=== PATIENT | male | born 1955 | race Caucasian/White ===

== ENCOUNTER 2017-11-25 08:36 | Inpatient (IN) | payer OTHER ==
[~2017-11-25] VITALS: Ht 180.3 cm; Wt 132.0 kg
[2017-11-25 09:29] LABS: BASOPHIL % 0.8 % (0-2); PLATELET COUNT 145 x10^3mcL (130-400)
[2017-11-25 09:37] LABS: CARBON DIOXIDE 25.8 mmol/L (21-32); CHLORIDE SERUM 104 mmol/L (98-107); CREATININE SERUM 1.1 mg/dL (0.7-1.3); GFR1 > 60 mL/min; GLUCOSE SERUM 118 mg/dL (74-106); POTASSIUM SERUM 4.5 mmol/L (3.5-5.1); SODIUM SERUM 134 mmol/L (136-145)
[2017-11-25 09:42] LABS: ALKALINE PHOSPHATASE 192 U/L (46-116); ALT/SGPT 121 U/L (16-63); AST/SGOT 126 U/L (15-37); BILIRUBIN TOTAL 1.41 mg/dL (0.20-1.00); TOTAL PROTEIN, SERUM 8.1 g/dL (6.4-8.2)
[2017-11-25 09:43] LABS: ALBUMIN 3.2 g/dL (3.4-5.0)
[2017-11-25 09:55] LABS: RED CELL DISTRIBUTION WIDTH 14.6 % (11.5-14.5)
[2017-11-25 12:56] LABS: microscopic required? YES; urine erythrocyte TRACE (NEGATIVE)
[2017-11-25] MEDS ORDERED: CLARITIN LIQUI-10 MG PO (13:22)
[2017-11-25] MEDS ORDERED: LACTULOSE10 GM/152 PO (13:23)
[2017-11-25] MEDS ORDERED: TUMS CH (13:23)
[2017-11-25 14:27] VITALS: BP 147/80
[2017-11-25 14:34] VITALS: Ht 180.3 cm; Wt 132.0 kg
[2017-11-25 17:00] VITALS: BP 144/82
[2017-11-25 20:23] VITALS: BP 145/77
[2017-11-26 06:07] VITALS: BP 125/73
[2017-11-26 09:13] VITALS: BP 114/68
[2017-11-26 13:37] VITALS: BP 106/54
[2017-11-26 17:34] VITALS: BP 120/69
[2017-11-26 19:40] VITALS: BP 112/62
[2017-11-27 05:15] VITALS: BP 129/76
[2017-11-27 06:17] LABS: CALCIUM 8.7 mg/dL (8.5-10.1); CARBON DIOXIDE 29.8 mmol/L (21-32); CHLORIDE SERUM 104 mmol/L (98-107); CREATININE SERUM 1.1 mg/dL (0.7-1.3); GFR1 > 60 mL/min; GLUCOSE SERUM 95 mg/dL (74-106); POTASSIUM SERUM 4.1 mmol/L (3.5-5.1); SODIUM SERUM 139 mmol/L (136-145)
[2017-11-27 06:20] LABS: BASOPHIL % 0.5 % (0-2); PLATELET COUNT 137 x10^3mcL (130-400)
[2017-11-27 06:32] LABS: RED CELL DISTRIBUTION WIDTH 14.7 % (11.5-14.5)
[2017-11-27 08:31] VITALS: BP 124/69
[2017-11-27 12:02] VITALS: BP 124/69
== END 2017-11-27 13:47 | disposition other institution (70) | DRG 441 ==
LOC: ED 08:36 → DU 12:25
PROVIDERS: Emergency Medicine; Internal Medicine
PROC: 0W9G3ZZ Drainage of Peritoneal Cavity, Percutaneous Approach (ICD-10-PCS; principal; 2017-11-26)
DX: K72.90 Hepatic failure, unspecified without coma (principal); I81 Portal vein thrombosis; R18.8 Other ascites; K76.6 Portal hypertension; F11.20 Opioid dependence, uncomplicated; K74.60 Unspecified cirrhosis of liver; K21.9 Gastro-esophageal reflux disease without esophagitis; Z88.8 Allergy status to other drugs, medicaments and biological substances; Z76.5 Malingerer [conscious simulation]
CPT/HCPCS: 49083; 85378; C9113; J0696; J1940; J2270; J2405; J3490; J7030; Q0092; Q9967

== ENCOUNTER 2018-07-25 12:37 | Inpatient (IN) | payer OTHER ==
[~2018-07-25] VITALS: Ht 180.3 cm; Wt 95.3 kg
[~2018-07-25 12:37] MED LIST: CLARITIN LIQUI-10 MG PO; LACTULOSE10 GM/152 PO; TUMS CH
[2018-07-25 12:48] VITALS: Ht 180.3 cm; Wt 95.3 kg
--- NOTE | 2018-07-25 12:50 | NUR ---
PT PRESENTS TO ED BIBA FOR NEAR SYNCOPAL EPISODE. PT CIM INMATE AND WAS TO BE TRANSPORTED TO DIALYSIS () WHEN HE WAS FOUND NEAR NONRESPONSIVE, ONLY RESPONDING TO TACTILE STIMULI. PT STATES 10/10 PAIN TO BILATERAL FLANKS. PRIOR TO AMBULANCE ARRIVAL PT WAS FOUND TO HAVE BP 70/30 AND A LEFT EJ WAS INITIATED. 500 ML FLUID BOLUS GIVEN. PARAMEDICS EN ROUTE GAVE AN ADDITIONAL 50 ML, BS 103.
--- NOTE | 2018-07-25 13:14 | NUR ---
DR DAVID AT BEDSIDE SPEAKING WITH PT, PT ANSWERING ALL QUESTIONS. PT ON CHANGE NUMBER OPERATOR, B/P 94/61 P=98 SIDE RAILS UP FOR RON, C/I IN REACH PT IS FROM [facility] HE HAS 2 GUARDS AT HIS SIDE ADELAIDA AND ZACHARY.
--- NOTE | 2018-07-25 13:32 | NUR ---
FENCE INSTALLER FOREMAN AT BEDSIDE ATTEMPTING TO COLLECT BLOOD. PT AWAKE AND TOLERATING WELL.
--- NOTE | 2018-07-25 13:33 | NUR ---
JUVENILE JUSTICE OFFICER AT BEDSIDE FOR LAB DRAW
--- NOTE | 2018-07-25 13:39 | NUR ---
I ASSISTED WITH BLOOD COLLECTION, I ASKED THE PT IF I COULD WITHDRAW BLOOD FROM HIS EJ ON LEFT NECK PT AGEED. I USED TOW PICKER. PT TOLERATED WELL.
--- NOTE | 2018-07-25 13:40 | NUR ---
BROOM BUILDER AT BEDSIDE TO COLLECT CXR. PT AWAKE SPEAKING WITH TECH, GUARDS REMAIN AT HIS SIDE
[2018-07-25 14:04] LABS: BILIRUBIN TOTAL 9.11 mg/dL (0.20-1.00); CALCIUM 8.9 mg/dL (8.5-10.1); CARBON DIOXIDE 23.7 mmol/L (21-32); POTASSIUM SERUM 4.4 mmol/L (3.5-5.1)
[2018-07-25 14:10] LABS: ALBUMIN 1.4 g/dL (3.4-5.0); CREATININE SERUM 4.9 mg/dL (0.7-1.3); TOTAL PROTEIN, SERUM 5.4 g/dL (6.4-8.2)
--- NOTE | 2018-07-25 14:13 | NUR ---
PT STATES 10/[address] DAVID MADE AWARE
[2018-07-25 15:17] LABS: PLATELET COUNT 163 x10^3mcL (130-400)
[2018-07-25 15:20] LABS: RED CELL DISTRIBUTION WIDTH 16.1 % (11.5-14.5)
--- NOTE | 2018-07-25 15:59 | NUR ---
LAB CALLED TO STATE PT'S COAGULATION STUDY WAS NOT ABLE TO BE READ. ATTEMPTED TO REDRAW BLOOD FROM PT'S LEFT EJ WITH PT CONSENT. NO BLOOD ABLE TO BE OBTAINED FROM EJ. FLUSHES WELL. ADMINISTRATIVE SALES ASSISTANT AT BEDSIDE ATTEMPTED TO DRAW BLOOD PERIPHERALLY. PT REFUSED LAB DRAW AFTER ONE ATTEMPT AND STATES "I DONT HAVE ANY VEINS THERE". DR. DAVID MADE AWARE
[2018-07-25 16:09] LABS: BAND NEUTROPHIL 0 % (0-10); BASOPHIL 0 % (0-2); MONOCYTE 1 % (0-7); SEGMENTED NEUTROPHILS 76 % (37-75); rbc morphology (normal/abnorm) ABNORMAL (NORMAL)
[2018-07-25] MEDS ORDERED: NITROSTAT0.4 MG (16:51)
[2018-07-25] MEDS ORDERED: LOV40I SC (16:52)
[2018-07-25] MEDS ORDERED: NATURE'S BLEND F1 MG PO (16:52)
[2018-07-25] MEDS ORDERED: MIDODRINE HYDRO10 M1 PO (16:52)
[2018-07-25] MEDS ORDERED: LACTULOSE10 GM/152 PO (16:53)
[2018-07-25] MEDS ORDERED: PROTONIX40 MG PO (16:53)
[2018-07-25] MEDS ORDERED: METOPROLOL TART25 M1 PO (16:53)
[2018-07-25] MEDS ORDERED: TRAMADOL HCL50 MG PO (16:54)
[2018-07-25] MEDS ORDERED: LASIX40 MG PO (16:54)
[2018-07-25] MEDS ORDERED: CIPRO500 MG PO (16:54)
[2018-07-25] MEDS ORDERED: XIFAXAN550 M1 PO (16:54)
[2018-07-25] MEDS ORDERED: GAS RELIEF 8080 MG PO (16:54)
--- NOTE | 2018-07-25 17:14 | NUR ---
REPORT GIVEN TO MELO PEREIRA RESUMING CARE OF PT IN TELE FLOOR
--- NOTE | 2018-07-25 17:37 | NUR ---
PT TRANSPORTED TO TELE FLOOR VIA GURNEY ON PORTABLE CM CIM GUARDS ACCOMPANYING PT. PT AAOX4 NO DISTRESS, ALBUMIN INFUSING PER MD ORDER. IV SITE PATENT. MELO PEREIRA RESUMING CARE OF PT IN TELE FLOOR
--- NOTE | 2018-07-25 17:58 | NUR ---
RECEIVED PT FROM ER, REPORT GIVEN BY KELLI HDZ. PT ARRIVED ON GURNEY. PT IS AAOX4. HAS H/A AND DIZZINESS. TELE [address] READING NSR. RESP EVEN, SHALLOW AND UNLABORED. LUNG SOUNDS CTA. ABDOMEN DISTENDED, FIRM. BOWEL SOUNDS HYPOACTIVE. BLE +1 PITTING EDEMA. SKIN CDI, WITH OVERALL BODY DRYNESS. GLORIA CATH TO R UPPER CHEST COVERED WITH CDI OCCULSIVE DRESSING AND GAUZE. R EXTERNAL JUGULAR IV CATH 20 G WITH FLUIDS RUNNING. SITE WNL. NO S/S OF INFECTION NOTED. VS: 96.7, 87, 12, 92/69, 77 MAP, 99% ON 2LPM N/C. DENIES PAIN AT THIS TIME. PT ORIENTED TO ROOM AND CALL LIGHT.
[2018-07-25 18:38] VITALS: BP 92/69
--- NOTE | 2018-07-25 18:53 | NUR ---
SPOKE TO PT'S INSURANCE COMPANY, IT WAS STATED THAT PT CAN D/C AT THIS TIME AND THE HOME HEALTH AGENCY : [employer], TEL: [phone], WILL CALL PT AT HOME TO SET UP APPT. BOBBY KWOK NP MADE AWARE. PT IS AAOX4. TELE [address] READING AFIB. RESP EVEN AND UNLABORED. NO DISTRESS NOTED. PT ON 02 N/C. IV CATH TO LAC WITH FLUIDS RUNNING. SITE WNL. PT WAS ABLE TO TURN AND REPOSITION SELF THROUGHOUT SHIFT. CALL LIGHT WITHIN REACH. BED ALARM ON. BED IN LOWEST POSITION. ENDORSED ALL CARE TO NOC RN.
--- NOTE | 2018-07-25 19:05 | NUR ---
RECEIVED PT FROM PREVIOUS SHIFT. AAO. ABLE TO MAKE NEEDS KNOWN AND FOLLOW COMMANDS. DENIES HEADACHE/DIZZINESS. DENIES PAIN. TELE #1 SHOWING NSR, DENIES CP. EDEMA NOTED TO BLE. PT IS ON HD (/SUNDAY), NO DIALYSIS SCHEDULED YET FOR PT, WILL FOLLOW UP WITH DR. GALINDO. NO S/S ACUTE DISTRESS. PT BREATHING E/U ON/OFF 2L OXYGEN NC. DENIES SOB. CALL LIGHT WITHIN REACH. CIM GUARDS AT BEDSIDE. SAFETY MEASURES IN PLACE. WILL CONTINUE TO MONITOR.
--- NOTE | 2018-07-25 19:55 | NUR ---
PT MEDICATED PER EMAR FOR 9/10 ACHING ABD PAIN.
[2018-07-25 21:00] VITALS: BP 90/56
--- NOTE | 2018-07-26 00:23 | NUR ---
CALLED [facility] (REJI)AND LEFT MESSAGE. AWAITS CALL BACK.
--- NOTE | 2018-07-26 01:53 | NUR ---
PT RESTING IN BED WITH EYES CLOSED. NO S/S ACUTE DISTRESS. BREATHING E/U. NO SIGNS OF PAIN NOTED. CIM GUARDS AT BEDSIDE. WILL CONTINUE TO MONITOR.
[2018-07-26 06:01] VITALS: BP 98/70
--- NOTE | 2018-07-26 06:02 | NUR ---
PT MEDICATED PER EMAR FOR 9/10 GENERALIZED BODY PAIN. NO S/S ACUTE DISTRESS. NO CHANGES OVERNIGHT. ALL NEEDS MET AND ATTENDED TO. PT UNABLE TO PROVIDE URINE SAMPLE AT THIS TIME. SAFETY MEASURES IN PLACE. IV REMAINS CDI, IVF INFUSING WELL. CALL LIGHT WITHIN REACH. CIM GUARDS AT BEDSIDE. WILL ENDORSE CARE TO ONCOMING SHIFT.
--- NOTE | 2018-07-26 07:02 | NUR ---
PLACE A CALL AGAIN TO [facility] MENDOZA NURSE.
[2018-07-26 07:07] LABS: BILIRUBIN TOTAL 9.54 mg/dL (0.20-1.00); CALCIUM 8.7 mg/dL (8.5-10.1); CARBON DIOXIDE 26.3 mmol/L (21-32); POTASSIUM SERUM 4.1 mmol/L (3.5-5.1)
--- NOTE | 2018-07-26 07:13 | NUR ---
BEDSIDE REPORT GIVEN TO KELLI BLUE.
[2018-07-26 07:15] LABS: ALBUMIN 1.8 g/dL (3.4-5.0); T4(THYROXINE) 4.5 ug/dL (4.7-13.3); TOTAL PROTEIN, SERUM 5.5 g/dL (6.4-8.2)
[2018-07-26 07:16] LABS: CREATININE SERUM 5.4 mg/dL (0.7-1.3)
[2018-07-26 07:28] LABS: PLATELET COUNT 183 x10^3mcL (130-400); RED CELL DISTRIBUTION WIDTH 16.9 % (11.5-14.5)
--- NOTE | 2018-07-26 08:00 | NUR ---
PATIENT RECEIVED HAVING HIS ULTRA SOUND AT THIS TIME. PATIENT IS FOR HEMO DIALYSIS TODAY WELL PARACENTESIS. ABDOMEN IS VERY DISTENDED AND PATEINT HAS SHALLOW BREATHING BUT DENIES SOB. PATIENT HAS EDEMA NTO LOWER EXTREMITIES OF ONE PLUSE AND IS JAUNDICED IN APPEARANCE. HX OF HEP C AND CIRRHOSIS NOTED. COMPLAINS OF DIARRHEA AND HAS BEEN OOB TO THE RESTROOM. GAURDS AT BEDSIDE AND SECURITY HAS BEEN MAINTAINED. WILL OBTAIN CONSENT FOR BOTH THE PARACENTESIS AND DIALYSIS INDICATED. PATIENT HAS HX OF DRUG USE AND GERD AND HAS BEEN NEW TO DIALYSIS WITH TUNNEL CATH THTE TH ERIGHT UPPER CHEST IN PLACE. PATIENT IS CONCERNED ABOUT HAVING BOTH PROCEDURES TODAY. NOTED THIS AND ADVISED THAT THE HEMO DIALYSIS SHOULD BE FIRST AND THEN THE PARACENTESIS IF INDICATED. WILL CONTINUE TO MONITOR INDICATED. PATIETN TOLERATED DIET ORDERED.
[2018-07-26 09:07] VITALS: BP 105/69
--- NOTE | 2018-07-26 09:20 | NUR ---
PATIENT WAS TAKEN TO THE RESTROOM AND TOLERATED THE TRIP AND AMBULATED FINE. BUT WHEN IT CAME TIME TO GO BACK TO BED PATEINT COULD NOT STAND ON HIS OWN. ASSISTED HIM BACK TO BED. PATIENT IS SOB BUT REFUSED THE 02 AT THIS TIME. WILL CONTINUE TO MONITOR. VITALS STABLE.
--- NOTE | 2018-07-26 10:29 | NUR ---
PATIENT STARTED ON DIALYSIS AND BUSHRA DID SIGN FOR CONSENT BUT REFUSED THE CONSENT FOR PARACENTESIS AT THIS TIME. WILL CONTINUE TO MONITOR.
--- NOTE | 2018-07-26 11:56 | NUR ---
CHECKED PPD PER REQUEST BY THE LONG TERM AND NO INDURATION NTOED. SIGNED AND DATED THE PAPERWORK AND SS KEV BE FAXING BACK TO THE LONG TERM PER THIER REQUEST. CONTINUED ON DIALYSIS ORDERD.
--- NOTE | 2018-07-26 12:43 | NUR ---
DIALYSIS COMPLETED AND NO FLUIDS REMOVED AT THIS TIEM. APTEINT IS WITH BP STILL LOW AT 98/55. PATIENT DENIES SOB AT THIS TIEM REQUESTED PAIN MEDICATION AND OFFERED AND GAVE NORCO ORDERED. WILL MONITOR FOR EFFECCTIVENESS. JAG HAS GAURDS AT BEDSIDE AND SECURITY HAS BEEN MAINTAINED.
[2018-07-26 14:04] VITALS: BP 98/70
[2018-07-26 17:16] LABS: SOURCE FLUID ASCITES
[2018-07-26 17:50] VITALS: BP 90/59
--- NOTE | 2018-07-26 19:10 | NUR ---
PT RECIEVED FROM THE DAY SHIFT RN. PT IS ALERT AND ORIENTED X4, CALM AND COOPERATIVE WITH CARE. 2 GUARDS AT THE BEDSIDE, PT IS CIM, PT HAS COMPLAINT OF ABDOMINAL PAIN AT THIS TIME. PT STATES PAIN IS SHARP AND 09/11/ PT IS CURRENTLY NOT DUE YET FOR PAIN MEDICATION, WILL MEDICATE WITH PRN PAIN MEDICATION WHEN ABLE. SAFETY AND COMFORT MEASURES MAINTAINED, BED IN LOWEST POSITION, CALL LIGHT WITHIN REACH.
[2018-07-26 20:19] LABS: APPEARANCE FLUID HAZY
[2018-07-26 20:20] LABS: COLOR FLUID YELLOW; RBC FLUID 542 /cumm; WBC FLUID 89 /cumm
[2018-07-26 20:38] LABS: MONOCYTE 2 % (0-7); SEGMENTED NEUTROPHILS 74 % (37-75)
[2018-07-26 20:39] LABS: PLATELET MORPHOLOGY PLATELETS NORMAL; rbc morphology (normal/abnorm) ABNORMAL (NORMAL)
--- NOTE | 2018-07-26 21:03 | NUR ---
PRN NORCO GIVEN FOR ABDOMINAL PAIN. WILL REASSESS PT PAIN IMPROVEMENT.
[2018-07-26 21:10] VITALS: BP 100/68
[2018-07-26 21:22] LABS: LYMPHOCYTE FLUID 81 %; MONOCYTE FLUID 3 %
--- NOTE | 2018-07-27 00:06 | NUR ---
PT IS RESTING IN BED WITH EYES CLOSED AT THIS TIME. NO ACUTE DISTRESS NOTED, NO S/S OF PAIN NOTED. SAFETY AND COMFORT MEASURES MAINTAINED, BED IN LOWEST POSITION, CALL LIGHT WITHIN REACH, 2 GUARDS AT THE BEDSIDE.
[2018-07-27 05:13] LABS: RAPID PLASMA REAGIN Non Reactive (Non Reactive)
--- NOTE | 2018-07-27 05:14 | NUR ---
PT HAS SLEPT IN LONG INTERVALS THROUGHOUT THE SHIFT. PT HAS BEEN ALERT AND ORIENTED X4, PT HAS BEEN CALM AND COOPERATIVE WITH CARE, PT COMPLAINING OF ABDOMINAL PAIN AT THIS TIME. PT STATES PAIN IS 7/10, SHARP PAIN, WILL MEDICATE WITH PRN NORCO. SAFETY AND COMFORT MEASURES MAINTAINED, BED IN LOWEST POSITION, CALL LIGHT WITHIN REACH, WILL ENDORSE CONTINUITY OF CARE TO THE ONCOMING RN.
[2018-07-27 06:02] VITALS: BP 93/63
--- NOTE | 2018-07-27 06:30 | NUR ---
PT HAD A ASSISTED FALL BY GUARDS, PT HAS GENERALIZED WEAKNESS, PER THE GUARDS REPORT, GUARDS ASSISTED PT TO THE BATHROOM, GUARDS STATED "THE PATIENTS LEGS JUST GAVE OUT FROM UNDER HIM" PT STATED HE BLACKED OUT. ASSESSED THE PATIENT, NO WOUNDS, ABRASIONS, OR ECCHYMOSIS NOTED. PT DID HAVE ALTERED LEVEL OF CONSCIOUSNESS, PT WAS ALERT AND ORIENTED TO PERSON AND PLACE ONLY. PT VS WERE FOLLOWS: BP 95/64 MAP OF 74, SPO2 98% ON ROOM AIR. CALLED DR GALINDO AND DR GALINDO WAS MADE AWARE OF SITUATION AND NO FURTHER ORDERS WERE GIVEN.
[2018-07-27 07:44] LABS: PLATELET COUNT 160 x10^3mcL (130-400)
[2018-07-27 07:45] LABS: RED CELL DISTRIBUTION WIDTH 17.1 % (11.5-14.5)
--- NOTE | 2018-07-27 08:00 | NUR ---
PATIENT WAS ASSISTED UP TO THE COMODE AND BACK TO BED BY STAFF AND TOLERATE FAIR. HE LOOKS FRIGHTENED AND CONCERNED AND HAS BEEN WEAKER THIS AM.ENOCURAGE TO REQUEST ASSIST WITH ADLS AND TOILETING AND ENCOURAG ETO EAT. NOTE DTHE PATIENT HAS STILL LOW BP AND HAD PER THE PATIENT THE SAME FEELING HEHAD AT THE GROUP HOME THAT BROUGHT HIM HERE. PATEINT AHS A WITNESS SOFT FALL AND NO APPARENT INJURY WAS NOTED BY SPECIAL EFFECTS SPECIALIST. HE HAS ATTEMPED OOB AND SLOW BECAME WEAK AND SLID TO THE FLOOR. PATIENT WAS ASSESS AND DOCTOR IS AWAREL . PATEINT HAS VITALS AT THIS TIME AT 95/63, 18, 102, 97.9, 98%. PATIENT HAD A PARACENTESIS YESTERDAY AND HEMODIALYSIS YESTERDAY. HE HAD BEEN WITH AN AVERAGE BP IN THE 90'S OVER 60'S. PAITENT HAS GAURDS AT BEDSIDE AND SECURITY HAS BEEN MAINTAINED. WITH HISTORY, CIRRHOSIS AND END STAGE RENAL DESEASE AND FAIRLY NEW TUNNEL CATH FOR DIALYSIS. PATIENT AHS BEEN NOTED IWHT HEPATITIS C AND HAD TB TEST DONE AND NEGATIVE. AWAITING THE [employer] TO RETURN AND PATIENT HAS NO SIGNS OF TB AT THIS TIME. PATIENT HAS SOME EDEMA TO THE LOWER EXTREMTITIES AND THE ASCITES HAS MUCH IMPROVED THE ABDOMEN IS FLATTER. PTIENT HAS BEEN HAVING LESS BREATHI G ISSUES AND HAS BEEN WITH CONTINUE JAUNDICE TO THE SKIN BUT OVERALL COLOR IMPROVED SINCE YESTERDAY AT THIS TIME.
[2018-07-27 09:05] LABS: RHEUMATOID ARTHRITIS FACTOR 17.3 IU/mL (0.0-13.9)
[2018-07-27 09:45] LABS: ERYTHROCYTE SED RATE 17 mm/hr (0-20)
[2018-07-27 09:47] VITALS: BP 97/67
[2018-07-27 09:54] LABS: BAND NEUTROPHIL 0 % (0-10); BASOPHIL 0 % (0-2); MONOCYTE 2 % (0-7); SEGMENTED NEUTROPHILS 72 % (37-75)
[2018-07-27 09:55] LABS: rbc morphology (normal/abnorm) ABNORMAL (NORMAL)
[2018-07-27 09:58] LABS: PLATELET MORPHOLOGY PLATELETS NORMAL
--- NOTE | 2018-07-27 10:05 | NUR ---
WENT OVER PLAN OF CARE WITH PATIENT AND GEOVANNA AT [facility]. TOSIN HAS A SMALL LOOSE STOOL WHIL UP AT [facility]. PATIENT TOOK ALL MEDICATIONS ORDERED.
--- NOTE | 2018-07-27 12:02 | NUR ---
STILL APPEARS WEAK AND LISTLESS AT THIS TIME. HE HAS TAKEN HIS MEEICATION BUT THE PATIEN TSTILL WITH LOW BP. GEOVANNA AT BEDSIDE ANDMONITORED FOR KATHERINEEY AND ENCOURAGE TO REQUEST ASSIST WITH OOB.
[2018-07-27 12:33] VITALS: BP 94/64
--- NOTE | 2018-07-27 12:59 | NUR ---
PHYSICAL THERAPY NOTE ATTEMPTED FOR EVALUATION, PATIENT REFUSED SECONDARY TO BEING LETHARGIC AT THIS TIME TO BE ATTEMPTED NEXT SESSION.
--- NOTE | 2018-07-27 16:18 | NUR ---
PATIENT ATE FAIR AND GAURDS AT BEDSIDE AND SECURITY HAS BEEN MAINTAINED. PATIENT HAS CONTINUED TO INDICATE HE IS TIRED AND TO TIRED TO PARTICIPATE IN PHYSICAL THERAPY TODAY. DR GALINDO WAS IN TO SEE AND ORDERED PHYSICAL THERAPY. ENCOURAGE TO DEEP BREATH. VITALS OF BP REMAIN LOW WITH AVERAGE IN THE 90'S OVER 60'S.
[2018-07-27 17:36] VITALS: BP 95/64
--- NOTE | 2018-07-27 19:20 | NUR ---
RECEIVED PT IN BED RESTING.NO ACUTE RESPIRATORY DISTRESS NOTED. LUNG SOUND CTA.NO S/S PAIN TA THIS ITME.SOFT ABDOMEN.RIGHT YOHANA CATH FOR DIALYSIS ACCESS.HEPLOCK TO LIJ PATENT AND INTACT.EDEMA TO BLE.BED IN LOWEST POSITION,CALL LIGHT WITHIN REACH. WILL CONTINUE TO MONITOR.
[2018-07-27 21:39] VITALS: BP 99/66
--- NOTE | 2018-07-28 05:12 | NUR ---
PT APEARS TO BE SLEEPING.NO DISTRESS NOTED.DENIES ANY PAIN AT THIS TIME.BEDSIDE COMMODE WITHIN REACH.GUARD AT BEDSIDE.BED IN LOWEST POSITION,SIDERAILS UP. WILL CONTINUE TO MONITOR.
--- NOTE | 2018-07-28 06:00 | NUR ---
PT C/O STOMACH PAIN 09/11. MEDICATED NORCO 5/325MG PO ORDERED. WILL CONTINUE TO MONITOR.
[2018-07-28 06:24] VITALS: BP 95/67
[2018-07-28 06:50] LABS: PLATELET COUNT 194 x10^3mcL (130-400)
[2018-07-28 06:57] LABS: CALCIUM 8.1 mg/dL (8.5-10.1); CARBON DIOXIDE 25.9 mmol/L (21-32); POTASSIUM SERUM 4.4 mmol/L (3.5-5.1)
[2018-07-28 06:59] LABS: CREATININE SERUM 5.4 mg/dL (0.7-1.3)
--- NOTE | 2018-07-28 07:08 | NUR ---
RECEIVED BEDSIDE REPORT FROM NIGHT HSIFT NURSE. PATIENT IS STABLE, ALERT AND ORIENTED X4. NO APPARENT SIGNS OF SOB OR RESPIRATORY DISTRESS. RESPIRATIONS ARE EVEN, NOT LABORED, ON ROOM AIR. PATIENT HAS LEFT IJ AND ACCESS ON RIGHT. PATIENT IS CIM AND HAS DEPUTY AT BEDSIDE. QUESTIONS AND CONCERNS ADDRESSED. SAFETY PRECAUTIONS IN PLACE.
--- NOTE | 2018-07-28 07:18 | NUR ---
CARE ENDORSED TO DAY NURSE DAMIEN. ALL QUESTION AND CONCERN WERE ADDRESSED.
[2018-07-28 08:03] LABS: BILIRUBIN DIRECT 8.03 mg/dL (0.0-0.2); BILIRUBIN TOTAL 9.8 mg/dL (0.20-1.00)
[2018-07-28 08:06] LABS: ALBUMIN 1.5 g/dL (3.4-5.0); TOTAL PROTEIN, SERUM 5.2 g/dL (6.4-8.2)
--- NOTE | 2018-07-28 08:08 | NUR ---
PATIENT IS RESTING CONFORTABLY IN BED, NO APPARENT SIGNS OF PAIN OR SOB. NO APPARENT SIGNS OF RESPIRATORY DISTRESS. BED IN LOW POSITION, CALL LIGHT WITHIN REACH. DEPUTY AT BEDSIDE. SAFTEY PRECAUTIONS IN PLACE.
[2018-07-28 09:10] VITALS: BP 94/67
--- NOTE | 2018-07-28 09:58 | NUR ---
PATIENT ON BEDSIDE COMODE. PATIENT ABLE TO GET ONTO BEDSIDE COMODE WITH MINIMAL ASSISSTANCE. NO APPARENT SIGNS OF SOB. SAFETY PRECAUTIONS IN PLACE.
[2018-07-28 10:18] LABS: BAND NEUTROPHIL 0 % (0-10); BASOPHIL 0 % (0-2); MONOCYTE 3 % (0-7); SEGMENTED NEUTROPHILS 73 % (37-75)
[2018-07-28 10:19] LABS: PLATELET MORPHOLOGY PLATELETS NORMAL; rbc morphology (normal/abnorm) ABNORMAL (NORMAL)
--- NOTE | 2018-07-28 11:17 | NUR ---
PATIENT IS RESTING COMFORTABLY IN BED, HE IS SLEEPING. NO APPARENT SIGNS OF SOB, OR PAIN. DEPUTY AT BEDSIDE. SAFETY PRECAUTIONS IN PLACE.
--- NOTE | 2018-07-28 12:13 | NUR ---
DR GALINDO NOTIFIED THAT PATIENT WAS FOUND ON THE FLOOR. NO NEW ORDERS RECEIVED. ATTENDING NURSE- DAMIEN MADE AWARE.
--- NOTE | 2018-07-28 12:14 | NUR ---
PATIENT WAS FOUND ON THE FLOOR BY DEPUTY. PATIENT STATES THAT HE DOESNT REMEMBER WHAT HAPPENED. THE INCIDENT REPORTED BY DEPUTIES AT BEDSIDE WAS AT 1210. PATIENT IS CONFUSED BUT AWAKE, DOES NOT RECALL HIS NAME, OR PLACE, HE IS SLOW TO ANSWER. DR GALINDO IS AWARE OF THE FALL. THERE IS A SKIN TEAR TO LEFT FOREARM. VITALS SIGNS ARE BP 86/57, MAP 69, SPO2 99 ON RA. HR 107.
--- NOTE | 2018-07-28 12:55 | NUR ---
Initial Nutrition Assessment- Dx: AMS PMHx: ESRD on HD 3x/week, ESLD cirrhosis PSHx: Denies Hx Labs: (07/28/18) Na 131 L, K 4.4, Glu 93, BUN 38 H, Cr 5.4, Phos 4.5, H/H 14.1/42 Meds: ambien, cephulac, D5%, NaCl 0.9%, Megace, Penrose, Phenergan, Synthroid, TUMS, Tylenol Diet: Regular PO Intakes: (07/27) 30%, (07/26) 60% Ht: 180.34 cm/71 inches/5'11" Wt: 95.254 kg/209# BMI: 29.2 kg/m2, overweight IBW: 172 pounds/78 kg %IBW: 121% UBW: Unknown Age: 63 Food Allergies: NFKA Skin: Delroy 16 Edema: BLE +1 non-pitting GI: Last BM 07/28/18 x 2 Pt admitted with dx: AMS, metabolic encephalopathy, ESLD, cirrhosis, ESRD, ascites, syncope, hypotension, r/o infection etiology. Per H&P, Pt missed HD on day of admission, is scheduled to have paracentesis. Pt started PT on 07/27/18. RDN visited with Pt. Pt reports a so-so appetite, denies N/V but did admit to having some N/V last night. RDN spoke with RN. RN reports Pt has been consuming 30-60% of meals. Pt is scheduled to start HD in facility tomorrow, discussed changing diet from regular to renal, RN acknowledges and will discuss recommendation with MD. Problem with: N: last night but none this morning V: last night but none this morning D: no C: no Problems with: Chewing: no Swallowing: no Current appetite: so-so Recent wt changes: none Vitamin/Supplement: none Special Diet at Home: regular Physical activity: none Education: none Estimated Nutritional Needs Based on ideal body weight of 78 kg due to ESRD on HD, ESLD with cirrhosis, edema. Energy: 2529-0807 kcal/d (30-35 kcal/kg for ESRD on HD, ESLD with cirrhosis, edema) Protein: 94-117 gm/d (1.2-1.5 gm/kg for ESRD on HD, ESLD with cirrhosis, edema) Fluid: 3514-0925 mL/d (1 mL/kcal) or per MD. Nutrition Diagnosis 1. Inadequate nutrient intake related to current diet as evidenced by regular diet not meeting nutrient needs for dx of ESRD on HD, ESLD with cirrhosis. Intervention/RDN Recommendation(s): 1. D/C regular diet. 2. Recommend renal diet due to Pt on HD 3x/weekly. Monitor/Evaluate Goal: Intake via PO intakes to meet at least 75% of estimated needs with acceptable tolerance within 2-3 days. Monitor: PO intakes and/or nutrition support tolerance, Labs, GI function, Skin integrity, Weights. F/U in 2-3 days as high risk (07/30-)
--- NOTE | 2018-07-28 12:55 | NUR ---
SPOKE WITH DR GALINDO REGARDING PATIENT FALL. DR GALINDO GAVE TELEPHONE ORDER FOR CT HEAD WITHOUT CONTRAST. CT ORDERED.
--- NOTE | 2018-07-28 12:56 | NUR ---
Intervention/RDN Recommendation(s): 1. D/C regular diet. 2. Recommend renal diet due to Pt on HD 3x/weekly.
[2018-07-28 13:16] VITALS: BP 86/57
--- NOTE | 2018-07-28 14:11 | NUR ---
PATIENT GOING DOWN TO CT FOR CT OF HEAD. PATIENT IS STABLE NO APPARENT SIGNS OF SOB. SAFETY PRECAUTIONS IN PLACE. DEPUTIES ARE AT BEDSIDE.
--- NOTE | 2018-07-28 14:33 | NUR ---
PATIENT BACK FROM CT. PATIENT IS STABLE NO APPARENT SIGNS OF SOB, OR RESPIRATORY DISTRESS. PATIENT DENIES OTHER NEEDS AT THIS TIME. SAFETY PRECAUTIONS IN PLACE. DEPUTIES AT BEDSIDE.
--- NOTE | 2018-07-28 15:47 | NUR ---
PATIENT IS RESTING COMFORTABLY BED. NO APPARENT SIGNS OF SOB. PATIENT STATES BELLY IS FEELING TIGHT AND WAS MADE AWARE HE IS SCHEDULED FOR DIALYSIS TODAY. PATIENT DENIES OTHER NEEDS AT THIS TIME. DEPUTIES AT BEDSIDE. SAFETY PRECAUTIONS IN PLACE. QUESTIONS AND CONCERNS ADDRESSED.
[2018-07-28 17:28] VITALS: BP 109/65
--- NOTE | 2018-07-28 18:56 | NUR ---
PATIENT IS RECEIVING HD. PER HD NURSE PATIENTS BP WAS 78/41 HR 105 PER HD PROTOCOL ALBUNIN AND HEPARIN WERE ORDERED TO BE GIVEN BY HD NURSE. PATIENT IS STABLE NO COMPLAINTS OF PAIN OR SOB. NO APPARENT SIGNS OF RESPIRATORY DISTRESS. PATIETN IS RESTING IN BED RECEIVEING HD. AFTER ADMINISTERING ALBUMIN HD NURSE REPORTS BP OF 103/71 MAP 80HR 107. WILL ENDORSE CARE TO MANAGER CARD NURSE.
--- NOTE | 2018-07-28 19:10 | NUR ---
PT RECEIVED A/O X4, ABLE TO MAKE NEEDS KNOWN. TELE #1, PT DENIES ANY CP/PRESSURE. BREATHING IS EVEN AND UNLABORED ON RA, DENIES SOB, NO RESP DISTRESS NOTED. ABD SOFT AND ROUND, DENIES ANY N/V. VOIDS FREELY, OLGURIC. PT RECEIVED HD AT THIS TIME, HD NURSE AT BEDSIDE. HD ACCESS TO TUNNEL CATH ON RT UPPER CHEST, DRSG CDI, SITE FREE FROM REDNESS OR SWELLING. BP-95/67, HR-105. GENERALIZED WEAKNESS, FALL PRECAUTIONS IN PLACE. SKIN TEAR AND ECCHYMOSIS TO LFA, ROBOTIC WELDER, NO ACTIVE BLEEDING NOTED. PT DENIES HAVING ANY PAIN AT THIS TIME. LEFT EXTERNAL JUGULAR CATH IN PLACE, PATENT AND INTACT, SITE FREE FROM REDNESS OR SWELLING. BED IN LOWEST SETTING, SIDE RAILS UP X2, CALL LIGHT WITHIN REACH. GUARDS AT BEDSIDE. WILL CONT TO MONITOR.
--- NOTE | 2018-07-28 19:18 | NUR ---
CARE ENDORSED TO BLACK LEATHER TRIMMER NURSE.
[2018-07-28 20:54] VITALS: BP 106/67
[2018-07-28 21:32] VITALS: BP 106/67
--- NOTE | 2018-07-28 21:32 | NUR ---
HEMODIALYSIS COMPLETE. PER HD NURSE-WAYLON, NO OUTPUT. BP-106/67, HR-99. RIGHT TUNNEL CATH IN PLACE, DRSG CDI. NO ACUTE DISTRESS NOTED. SNACKS GIVEN PER PT'S REQUEST. GUARDS AT BEDSIDE. CALL LIGHT WITHIN REACH. WILL CONT TO MONITOR.
--- NOTE | 2018-07-28 23:10 | NUR ---
PER SAFETY TEACHER, PT HAD RUN OF FIONA. PT ASSESSED, PT FOUND IN NO ACUTE DISTRESS. VSS: BP-108/67 (MAP-77), HR-101, 97% ON RA, TEMP-97.8, RR-18. PT C/O 12/12 ABD PA[address] CP[address] GALINDO CALLED AND MADE AWARE. ORDERS RECEIVED.
--- NOTE | 2018-07-28 23:41 | NUR ---
PT C/O 10/10 ABD PAIN AND CP, PRN NORCO GIVEN ORDERED. NO ACUTE DISTRESS NOTED. WILL CONT TO MONITOR.
--- NOTE | 2018-07-29 00:49 | NUR ---
PT RESTING IN BED WITH EYES CLOSED, BUT IS EASILY AROUSABLE. BREATHING IS EVEN AND UNLABORED, NO RESP DISTRESS NOTED. PT DENIES HAVING ANY PAIN AT THIS TIME. NO ACUTE DISTRESS OBSERVED. GUARDS AT BEDSIDE. CALL LIGHT WITHIN REACH. WILL CONT TO MONITOR.
[2018-07-29 05:09] VITALS: BP 97/69
--- NOTE | 2018-07-29 06:06 | NUR ---
PT SLEPT WELL THROUGHOUT THE EVENING. BREATHING IS EVEN AND UNLABORED, NO RESP DISTRESS NOTED. PT DENIES HAVING ANY PAIN AT THIS TIME. TUNNEL CATH TO RIGHT UPPER CHEST IN PLACE, DRSG CDI, SITE FREE FROM REDNESS OR SWELLING. SL TO LEFT EJ IN PLACE, PATENT AND INTACT, SITE WNL. ALL NEEDS MET AND ANTICIPATED. PT IN NO ACUTE DISTRESS. GUARDS AT BEDSIDE. CALL LIGHT WITHIN REACH. WILL ENDORSE CARE TO AM NURSE.
--- NOTE | 2018-07-29 07:31 | NUR ---
PT IN NO ACUTE DISTRESS. CONTINUITY OF CARE ENDORSED TO DAMIAN PEREIRA. ALL QUESTIONS AND CONCERNS ADDRESSED.
--- NOTE | 2018-07-29 07:52 | NUR ---
REPORT RECEIVED. PATIENT SEEN ASLEEP ON ROUNDS. RR 16. NOT IN ANY DISTRESS. BED LOW AND LOCKED. 2 GUARDS WATCHING PATIENT IN THE ROOM.
[2018-07-29 09:42] VITALS: BP 111/74
--- NOTE | 2018-07-29 10:00 | NUR ---
IN BED RESTING. NO COMPLAINTS AT THIS TIME. GUARDS IN ROOM.
--- NOTE | 2018-07-29 13:48 | NUR ---
LUNCH WELL TOLERATED. DENIES ANY DISCOMFORT AT THIS TIME.
[2018-07-29 13:59] VITALS: BP 98/72
--- NOTE | 2018-07-29 15:24 | NUR ---
MD DIAZ HERE AND EVALUATED PATIENT. INFORMED HIMRE- 3 BEAT RUN VT LAST NIGHT. K 4.4 07/28/18. NO CHEST PAINS SO FAR.
--- NOTE | 2018-07-29 15:51 | NUR ---
REPORT GIVEN TO KELLI DALY. PATIENT IN BED. NOT IN ANY DISTRESS. CALL GORDON WITHIN REACH.
--- NOTE | 2018-07-29 16:48 | NUR ---
TOOK OVER CARE OF PT FROM SYLVAIN LICEA AT BEDSIDE.
[2018-07-29 16:58] VITALS: BP 105/69
--- NOTE | 2018-07-29 18:34 | NUR ---
RESTING QUIETLY WITH GUARDS X 2 AT BEDSIDE. NO C/O PAIN. BREATHING FREELY ON RA. REG DIET ORDERED ALTHOUGH PT PREFERS SOUP AND SPRITE. SAYS HIS STOMACH CAN'T HANDLE ANYTHING MORE SOLID. VSS. CONT. ON MIDIDRONE. SEEN BY DR. DIAZ TODAY. TELE # 1 SR-ST. CALL LIGHT WITHIN REACH.
--- NOTE | 2018-07-29 19:47 | NUR ---
RECEIVED PT FROM DAY SHIFT RN. PT AAOX4 DENIES HEADACHE OR DIZZINESS. BREATHING EVEN AND UNLABORED ON RA WITH NO SOB NOTED. TELE# 1 ST HR 107 PT DENIES CHEST PAIN OR PRESSURE. ABD DISTENDED, ACTIVE BOWEL SOUNDS DENIES ABD PAIN N/V. LEJ, SL. RIGHT UPPER CHEST TUNNEL CATH. ECCHYMOSIS BUE. GENERALIZED WEAKNESS NOTED. SAFETY PRECAUTIONS IN PLACE. NO SIGNSO OF ACUTE DISTRESS. GUARD AT BEDSIDE. WILL CONTINUE TO MONITOR.
[2018-07-29 21:43] VITALS: BP 106/75
--- NOTE | 2018-07-29 23:08 | NUR ---
PT REPORTED HAVING ABD PAIN 9/10, MEDICATED PER EMAR. WILL MONITOR.
--- NOTE | 2018-07-30 00:15 | NUR ---
PT RESTING, BREATHING EVEN AND UNLABORED WITH NO SOB NOTED. NO SIGNS OF DISTRESS NOTED. SAFETY PRECAUTIONS IN PLACE. GUARD AT BEDSDIE. WILL MONITOR.
--- NOTE | 2018-07-30 03:34 | NUR ---
PT AWAKE, DENIES ANY PAIN. NO SIGNS OF DISTRESS NOTED. SAFETY PRECAUTIONS IN PLACE. GUARD AT BEDSIDE. WILL MONITOR.
--- NOTE | 2018-07-30 06:29 | NUR ---
PT REPORTED FEELING NAUSEAUS, MEDICATED PER EMAR. WILL MONITOR.
--- NOTE | 2018-07-30 06:33 | NUR ---
PT SLEPT ON AND OFF TRHOUGHOUT THE NGT WITH NO SIGNS OF DISTRESS. PT REPORTED HAVING ABD PAIN, MEDICATED PER EMAR WITH RELIEF. GENERALIZED WEAKNESS. BREATHING EVEN AND UNLABORED ON RA WITH NO SOB NOTED. JOHANNAJ PATENT, SL. SAFETY PRECAUTIONS IN PLACE. GUARDS AT BEDSIDE. WILL CONTINUE TO MONITOR AND ENDORSE CARE TO DAY SHIFT RN.
[2018-07-30 06:55] VITALS: BP 90/63
--- NOTE | 2018-07-30 07:35 | NUR ---
PT BREATHING EVEN AND UNLABORED WITH NO SIGNS OF DISTRESS. ENDORSED CARE TO DAY SHIFT RN, ALL QUESTIONS ADDRESSED.
--- NOTE | 2018-07-30 07:35 | NUR ---
RECIEVED PT FROM NIGHT NURSE. PT IS LAYING DOWN IN BED WITH HOB UP. PT LOOKS TO BE IN NO ACUTE DISTRESS AND STATES FEELING SOME PAIN IN THE ABD. LAB AT BEDSIDE. IV SITE PATENT WITH NO SIGNS OF ERYTHEMA OR SWELLING. TELE MONITOR 1 PRESENT. OFFICER AT BEDSIDE. CALL LIGHT WITHIN REACH. WILL CONTINUE TO MONITOR.
[2018-07-30 07:57] LABS: PLATELET COUNT 232 x10^3mcL (130-400)
[2018-07-30 08:05] LABS: RED CELL DISTRIBUTION WIDTH 16.2 % (11.5-14.5)
[2018-07-30 08:15] LABS: BILIRUBIN DIRECT 9.06 mg/dL (0.0-0.2); BILIRUBIN TOTAL 11.07 mg/dL (0.20-1.00); CALCIUM 8.5 mg/dL (8.5-10.1); CARBON DIOXIDE 21.3 mmol/L (21-32); POTASSIUM SERUM 4.6 mmol/L (3.5-5.1)
[2018-07-30 08:32] LABS: TOTAL PROTEIN, SERUM 5.1 g/dL (6.4-8.2)
[2018-07-30 08:33] LABS: ALBUMIN 1.8 g/dL (3.4-5.0)
[2018-07-30 09:50] VITALS: BP 84/59
--- NOTE | 2018-07-30 11:30 | NUR ---
CT WITH CONTRAST ORDERED. NO 20 GAUGE IV PRESENT. MULTIPLE ATTMEPTS TO START A [address], ATTEMPTS UNSUCCESSFUL. CONTACTED DR. HILLIARD WHO CANCELED CT AND RECCOMENDED NO FURTHER TESTING AT THIS TIME. DR. GALINDO MADE AWARE. WILL CONTINUE TO MONITOR.
[2018-07-30 11:53] LABS: BAND NEUTROPHIL 1 % (0-10); BASOPHIL 0 % (0-2); MONOCYTE 4 % (0-7); SEGMENTED NEUTROPHILS 75 % (37-75)
[2018-07-30 11:55] LABS: rbc morphology (normal/abnorm) ABNORMAL (NORMAL)
[2018-07-30 11:56] LABS: PLATELET MORPHOLOGY PLATELETS NORMAL
[2018-07-30 13:07] VITALS: BP 92/64
--- NOTE | 2018-07-30 13:58 | NUR ---
Follow-up Nutrition Assessment: 226T/B INNA LANDEROS FU HR Dx: AMS PMHx: ESRD on HD 3x week, ESLD cirrhosis Labs: (07/30) NA 132L, BUN 38H, CREAT 5.0H, ALB 1.8L, AST 326H, ALT 153 Meds: Megace, pepcid Diet: Regular PO Intake: (07/30) 50% Weights: (07/25) 95.2 kg Skin: Ecchymosis BUE Delroy: 16 I/Os: 240/ output not documented. (07/29): 1290/1 Edema: BLE GI: Last BM: 07/29 RDN Visit (07/30): pt complains of vomiting and say that he has poor appetite. Pt is not willing to be on a Renal diet and says that he won't eat anything if placed on a Renal diet as he does not like that food. Pt was requesting soda. Pt was educated regarding the need to watch his phosphorus and potassium however pt was very adamant on not to be placed on a renal diet. Pt is however willing to drink Nepro (nutritional supplement). Estimated Nutritional Needs based on IBW 78 kg Energy: 1334-4825 kcal /d (30-35 kcal/kg) for ESRD on HD Protein: 94-117 g/d (1.2-1.5 g/kg) Fluid: per MD Nutrition Diagnosis 1. Inadequate oral intake related to current diet as evidenced by regular diet not meeting nutrient needs for dx of ESRD with cirrhosis.(ongoing) 2. Altered GI function related to medical condition as evidenced by vomiting. Intervention 1. Recommend continuing regular diet as patient refuses to consume renal diet. 2. Recommend Nepro with carbsteady BID d/t poor PO. Monitor/Evaluate Goal: Have pt meet at least 75% of estimated needs Monitor: PO intake, Labs, GI function F/U in 2-3 days as high risk 08/01-
--- NOTE | 2018-07-30 13:58 | NUR ---
1. Recommend continuing regular diet as patient refuses to consume renal diet. 2. Recommend Nepro with carbsteady BID d/t poor PO.
[2018-07-30 17:09] VITALS: BP 106/71
--- NOTE | 2018-07-30 18:53 | NUR ---
PT IS LAYING DOWN IN BED RESTING WITH EYES OPEN WATCHING TV. PT LOOKS TO BE IN NO ACUTE DISTRESS AND IS COMPLAINING OF ABD PAIN 8/10 AND IS REQUESTING PAIN MEDICATION. IV SITE PATEND WITH NO SIGNS OF ERYTHEMA OR SWELLING WITH IV FLUIDS INFUSING. BED IN LOWEST POSITION, CALL LIGHT WITHIN REACH. WILL MEDICATE PT ACCORDING TO EMAR. WILL ENDORSE TO ONCOMING SHIFT.
[2018-07-30 20:31] VITALS: BP 107/72
--- NOTE | 2018-07-30 22:06 | NUR ---
PATIENT AMBULATED TO BEDSIDE COMMODE AND HAD X1 LOOSE STOOL, BROWN, SMALL. OFFICERS BY BEDSIDE AND CALL LIGHT WITHIN REACH. PATIENT EDUCATED TO CALL FOR ASSISTANCE.
--- NOTE | 2018-07-30 22:33 | NUR ---
PATIENT CURRENTLY RESTING IN BED, UNABLE TO SLEEP AT THIS TIME. ALL NEEDS MET AT THIS TIME. CALL LIGHT WITHIN REACH. IVF INFUSING TO LEFT EXTERNAL JUGULAR AT 50CC/HR NS. OFFICERS BY BEDSIDE.
[2018-07-31] VITALS (7 sets, daily range): BP systolic 95–111; BP diastolic 66–80
--- NOTE | 2018-07-31 05:57 | NUR ---
DR. GALINDO AWARE THAT PATIENT HAD 7 BEATS OF V-TACH LAST NIGHT.
--- NOTE | 2018-07-31 06:35 | NUR ---
EXTERNAL LEFT JUGULAR IV SITE ACCIDENTALLY PULLED BY PATIENT. CHARGE NURSE ATTEMPTING NEW IV SITE IN WHICH PATIENT REQUESTED THAT WE WAIT TIL THE MORNING TO ATTEMPT AGAIN.
[2018-07-31 06:36] LABS: PLATELET COUNT 256 x10^3mcL (130-400)
[2018-07-31 06:43] LABS: CALCIUM 8.3 mg/dL (8.5-10.1); CARBON DIOXIDE 22.3 mmol/L (21-32); POTASSIUM SERUM 4.8 mmol/L (3.5-5.1)
[2018-07-31 06:52] LABS: CREATININE SERUM 5.7 mg/dL (0.7-1.3)
--- NOTE | 2018-07-31 07:02 | NUR ---
PHYSICAL THERAPY DAILY NOTES CO-SIGN All documentation done by the Platform Material Handler Manager for 07/31/18 has been reviewed. I agree with the documentation. Reviewed/Co-Signed by: Charlotte Zhong PT Documentation Done by:BALDOMERO CHANDLER PTA FOR 07/30/18
--- NOTE | 2018-07-31 07:20 | NUR ---
ENDORSED CARE TO AM KELLI BLUE. PATIENT QUIETLY RESTING IN BED. NO S/SX OF DISTRESS AT THIS TIME. CALL LIGHT WITHIN REACH AND OFFICERS BY BEDSIDE.
[2018-07-31 07:45] LABS: RED CELL DISTRIBUTION WIDTH 16.2 % (11.5-14.5)
--- NOTE | 2018-07-31 08:00 | NUR ---
PATIENT RECEIVED SLEEPY BUT [place].PATIENT IS VERY WEAK AND IS JAUNDICED IN APPEARANCE WELL GAUNT. PATIENT HAS BEEN EATTING MINIMALLY AND HAS BEEN WITH SEVERAL FALLS DUE TO BECOMING FAINT WHILE GETTING UP TO THE COMODE. PATIENT THOUGH WANTS TO DO THINGS ON HIS OWN. REMINDED THE PATIENT THAT ASSIST HIS BP AT 98/66, 97%, 104, 98.2, 18.PATIENT BUN AT 51 AND THE CREATININE AT 5.7, ALK PHOS TA T412, AND ALBUMIN AT 1.8. PATIENT HAS AST AT 326, BILI 11.7. PULSES ARE PALABLE AND SOME EDEMA NOTED TO THE LOWER EXTERMTIES AND PATEINT HAS DIMINIHSED BUT CLEAR BREATH SOUNDS.DENIES PAIN AT THIS TIME. GAURDS AT BEDSIDE AND SECURITY MAINTAINED.
--- NOTE | 2018-07-31 09:33 | NUR ---
CALLED [facility] TO ADVISE ABOUT THE DIALYSIS TO BE DONE TODAY. AWAITING CALL BACK AT [facility]IST RAMIRO HAD CALED DR HERRERA AND HE IS [place] AND STATE TO FOLLOW THE SAME ORDER YESTERDAY ADN THE DIALYSIS WAS NOT DONE. DR HILLIARD IS AWARWE THAT THE CT OF THE ABDOMEN COULD NOT BE DONE THE PATEINT HAS NO 20 GAUGE IV ACCESS. PATIENT HAS BEEN WITH ONLY A TWENTY FOUR AT THIS TIME THE EJ HAD BEEN DISLODGED WELL. PATIENT IS RETING AT THIS TIME AND MADE AWRE THE DIALYSIS WILL BE TODAY.
[2018-07-31 11:09] LABS: BAND NEUTROPHIL 0 % (0-10); BASOPHIL 0 % (0-2); MONOCYTE 1 % (0-7); PLATELET MORPHOLOGY PLATELETS NORMAL; SEGMENTED NEUTROPHILS 80 % (37-75)
[2018-07-31 11:12] LABS: rbc morphology (normal/abnorm) ABNORMAL (NORMAL)
--- NOTE | 2018-07-31 11:27 | NUR ---
CALLED DR GALINDO FOR ORDERS THE PATIENT HAS PPLAN OF DISCHAREG BUT HAS A NEED TO DILAYISIS. LEFT MESSAGE AT THIS TIME.
--- NOTE | 2018-07-31 11:55 | NUR ---
RECEIVED CALL BACK FROM DR GALINDO AND THE PATIENT CAN GO BACK TO [facility] [place] POST THE DIALSYSIS.
--- NOTE | 2018-07-31 12:43 | NUR ---
PATIENT HAS BEEN SEEN BY DR GALINDO AND ADVISED OF PLAN OF CARE FOR DISCHAGE BACK [facility] THE DIALYSIS. THERE WAS DISCUSSION THAT THE PATIENT THE DR CAN DO NO MORE FOR HIM AND HOPICE WILL NEED TO BE INVOLVED THE PRONOSIS IS POOR. REMINDED THE GAURDS THE PATIENT IS NOT STABLE AND HAS FALLEN SEVERAL TIMES.
--- NOTE | 2018-07-31 14:35 | NUR ---
SPOKE THE [facility]P ERPRESNTABLE AND THE APTEINT IS FOR DIALYSIS PRIOR TO TRANSFER BACK TO THE [facility]. APTIENT HAS BEEN WITH POOR PROGNOSIS AND HE HAS NOT BEEN ABLE TO TURN THIS AROUNDS. WTIH THE LIVER AND THE KIDNEY FAILURES THE PATIENT IS NOT EXJPECTED TO IMPROVE.
--- NOTE | 2018-07-31 15:02 | NUR ---
CALLED TO THE ROOM BY EDMOND SHER WHO WAS HELPING PATIENT BACK FROM BEDSIDE COMMODE. PER NIKKY PATIENT FAINTED WHEN HE WAS PUT BACK IN BED. NOTICED THAT PATIENT WAS NOT VERBALLY RESPONDING TO VERBAL AND TACTILE STIMULATION, BS- 113, BP- 111/80, HR- 109, T-98.5, O2 SA- 99% IN ROOM AIR. PATIENT HAD CLOSED EYES WITH NO MOVEMENTS, JERKING MOVEMENTS OF ARMS AND LIPS FOR 10 SECONDS. PATIENT WAS MOANING. GUARDS PRESENT IN THE ROOM. AFTER VITAL SIGNS CHECKED PATIENT IS RESPONSIVE TO TACTILE STIMULATION, KEEPS EYES CLOSED. HD TO START. SHIFT ENGINEER ABY GUY WAS NOTIFIED RE: PATIENT'S CONDITIONS AND THE NEED FOR GUERNEY TRANSPORTATION DUE TO WEAKNESS. MIRZA- ATTENDING NURSE MADE AWARE AND SHE WILL NOTIFY DR GALINDO. ABY GUY CALLED THE [facility] NURSE- NIKKY AND PLACED ME IN A CONFERENCE CALL. SIENA SHER PATIENT IS NOT STABLE TO GO BACK TO [facility]. INFORMED DR GALINDO AND HE SAID THAT THE PLAN IS STILL TO SEND PATIENT BACK TO [facility] AFTER HD. SHIFT ENGINEER- ABY GUY NOTIFIED.
--- NOTE | 2018-07-31 16:16 | NUR ---
PATIENT WAS TO HAVE DIALYSIS INDICATED AT BETWEEN 3-5 BUTY THE DIALYSIS NURSE WAS CALLED AWAY ON AN EMERGENCY. SPOKE WITH THE DIALYSIS NURSE ON [facility] FLOOR PRESENTLY AND HE WAS ALREADY SETTING UP FOR ANOTHER PATIENT AND EXPLAINED THE SITUATION ON THE PATIENT. HE IS TO START ON THE PATIENT AND EXPECTED TO COMPLETE SOME TIMES AFTER 8PM TONIGHT. PATIENT IS ASKING FOR PAIN MEDICATION AND [facility]ACY PROCESSING AT THIS TIME. PATIENT HAS BEEN AWAKE AND ORIENTED BUT WITH GENERAL WEAKNESS AND A BIT LISTLESS. THE DIALYSIS NURSE IS AWARE OF HISTORY AND RECENT FAINTING AND HJIS PROGNOSIS. THE INTERMEDIATE DID NOT WHISH TO ACCEDPT THE PATEITN BACK BUT THEY FINALLY AGREED AND PATIEN TIS TO GO BACK VIA AMBULANCE POST [facility] DIALYSIS. WILL CONTINUE TO MONITOR INDICATED.
--- NOTE | 2018-07-31 17:04 | NUR ---
CONTINUED ON DIALYSIS AND HAS BEEN VERY WEAK AND LETHARGIC.
--- NOTE | 2018-07-31 17:32 | NUR ---
CONTINUED ON DIALYSIS AND TOLERATED FAIR. GAURDS AT BEDSIDE AND SECURITY MAINTAINED.
--- NOTE | 2018-07-31 21:10 | NUR ---
DISCAHARGED BACK TO [facility]IA [facility] ACCOMPANIED BY OFFICERS. IV TO LEFT WRIST DISCONTINUED AND TAPED. CONSENT FOR DISCHARGED SIGNED BY PATIENT AND DC INSTRUCTION GIVEN TO MANDO.
--- NOTE | 2018-08-01 14:23 | NUR ---
PHYSICAL THERAPY DAILY NOTES CO-SIGN All documentation done by the Engine Setter for 08/01/18 has been reviewed. I agree with the documentation. Reviewed/Co-Signed by: Charlotte Zhong PT Documentation Done by:BALDOMERO CHANDLER PTA FOR 07/31/18
== END 2018-07-31 21:02 | disposition other institution (70) | DRG 441 ==
LOC: ED 12:37 → DU 16:26 → MU 17:45 → DU 18:32
PROVIDERS: Emergency Medicine; Internal Medicine Gastroenterology; ADMIT Internal Medicine
PROC: 5A1D70Z Performance of Urinary Filtration, Intermittent, Less than 6 Hours Per Day (ICD-10-PCS; principal; 2018-07-26)
PROC: 0W9G3ZZ Drainage of Peritoneal Cavity, Percutaneous Approach (ICD-10-PCS; 2018-07-26)
PROC: 5A1D70Z Performance of Urinary Filtration, Intermittent, Less than 6 Hours Per Day (ICD-10-PCS; 2018-07-28)
PROC: 5A1D70Z Performance of Urinary Filtration, Intermittent, Less than 6 Hours Per Day (ICD-10-PCS; 2018-07-31)
DX: K72.90 Hepatic failure, unspecified without coma (principal); N18.6 End stage renal disease; G93.41 Metabolic encephalopathy; I12.0 Hypertensive chronic kidney disease with stage 5 chronic kidney disease or end stage renal disease; R18.8 Other ascites; K74.69 Other cirrhosis of liver; B19.20 Unspecified viral hepatitis C without hepatic coma; K21.9 Gastro-esophageal reflux disease without esophagitis; G89.29 Other chronic pain; E11.22 Type 2 diabetes mellitus with diabetic chronic kidney disease; E03.9 Hypothyroidism, unspecified; R74.0 Nonspecific elevation of levels of transaminase and lactic acid dehydrogenase [LDH]; Z88.6 Allergy status to analgesic agent; Z99.2 Dependence on renal dialysis; Z88.8 Allergy status to other drugs, medicaments and biological substances
CPT/HCPCS: 49083; 82962; 83880; 86431; 87116; 87206; 97110-GP; 97112-GP; J1644; J2270; J2550; J7030; J7042; P9047; Q0092